=== PATIENT | male | born 1965 | race Caucasian/White ===

== ENCOUNTER 2023-08-31 16:25 | Emergency (ER) | payer OTHER, SELFPAY ==
--- NOTE | ~2023-08-31 | XR_ITS ---
XR humerus LT Ordering provider: Ligia Kong MD History: . fall, pain . Comparison: None. FINDINGS: BONES: No acute fracture or dislocation. JOINT SPACES: Normal. SOFT TISSUES: Normal. IMPRESSION: No acute osseous abnormality left humerus. Reviewed, dictated and finalized at location A.
--- NOTE | ~2023-08-31 | XR_ITS ---
XR shoulder LT min 2V Ordering provider: Ligia Kong MD History: . fall . Comparison: None. FINDINGS: BONES: No definite acute fracture or dislocation. Lucency is seen in the distal left clavicular which may be a nondisplaced fracture. Follow-up advised. JOINT SPACES: The acromioclavicular joint is normal. The glenohumeral joint is normal. Degenerative c hanges in the area of the supraspinatus tendon with calcification in the distal tendon which is highl y suggestive of calcific tendinitis. SOFT TISSUES: Normal. IMPRESSION: No definite acute osseous abnormality left shoulder. Lucency is seen in the distal left clavicle which may be a nondisplaced fracture. Follow-up advised. Calcific tendinitis of the left supraspinatus tendon. Reviewed, dictated and finalized at location A. IMPRESSION: No definite acute osseous abnormality left shoulder. Lucency is seen in the distal left clavicle which may be a nondisplaced fractu re. Follow-up advised. Calcific tendinitis of the left supraspinatus tendon.
[2023-08-31 16:28] VITALS: BP 175/73; PULSE 100; RESP 20; TEMP 36.5; O2SAT 94
--- NOTE | 2023-08-31 16:44 | ED.UPPEXIN ---
HPI - Extremity Injury (Upper) General Chief Complaint: Extremity Injury, Upper Stated Complaint: fell, L shoulder pain Time Seen by Provider: 08/31/23 16:32 History of Present Illness HPI narrative: Patient is a 58-year-old history of diabetes, hypertension here with a left shoulder injury. He states around 3:00 a.m. 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 He states he tried to stand up from sitting and had a soldering on how does wrap around 1 of his feet and this caused him to fall down onto his outstretched left arm with shoulder help rated he fell down onto his left side. He notes immediate pain to his left shoulder and some decrease motion of his shoulder due to she was cheating pain. He took no pain medication prior to coming to the hospital. He went home and his convinced him he needed to come into the emergency department for evaluation. He notes the pain radiates into his upper arm, denies any numbness or tingling over his arm. Denies any elbow, forearm, wrist, hand pain. He is ambidextrous and uses both hands for tasks. Related Data Allergies Allergy/AdvReac Type Severity Reaction Status Date / Time No Known Allergies Allergy Verified 08/31/23 16:35 Review of Systems Review of Systems: All systems reviewed & are unremarkable except as noted in HPI and below PMFSH Social History Social History Smoking status: Never smoker Alcohol intake: current Exam Narrative: GENERAL: Well-appearing, well-nourished, and in no acute distress. HEAD: Normocephalic, atraumatic. EYES: PERRLA and EOMI. ENT: Nares clear. Mucous membranes moist. NECK: Supple. CHEST: Clear to auscultation. No chest wall tenderness. No respiratory distress. HEART: Regular rate and rhythm. Normal peripheral pulses. ABDOMEN: Soft, nontender, nondistended. EXTREMITIES: Decreased range of motion of the left shoulder, nontender exam, no obvious deformity appreciated. No tenderness throughout the humerus, elbow, forearm, wrist, hand. Strong radial pulse present. Normal capillary refill throughout the left hand with normal sensation throughout the entire left arm. No tenderness present over bilateral clavicle. SKIN: Warm, dry, no rash. NEURO: No focal deficits. Alert and oriented x3. PSYCH: Normal mood and affect. Course Course Emergency Course: Chart review performed, patient here with the left upper extremity injury. Triage vitals show hypertension, otherwise within normal limits. No prior visits in our system. Patient seen evaluated, nontoxic appearing, here with a left shoulder injury which occurred at work. Will give patient pain medication, perform x-ray of shoulder and humerus. Suspicion for rotator cuff injury versus fracture versus musculoskeletal strain. Shoulder x-ray was largely negative. Lucencies seen in the distal left clavicle which could be a nondisplaced fracture. Humerus x-ray negative. Will place patient in sling and advise ROM at home. Will give orthopedic surgery follow up as needed. The results of pertinent diagnostic studies and exam findings were discussed. The patient?s provisional diagnosis and plan of care were discussed with the patient and present family. The patient and/or present family expressed understanding of the diagnosis and plan. The nurse was instructed to provide written instructions and appropriate follow-up information. The patient understands their need and responsibility to obtain additional follow-up as instructed. The risks of medications administered and prescribed were discussed with the patient and family present. Vital Signs Vital signs: Vital Signs Temperature 97.7 F 08/31/23 16:28 Pulse Rate 100 08/31/23 16:28 Respiratory Rate 20 08/31/23 16:28 Blood Pressure 175/73 H 08/31/23 16:28 Pulse Oximetry 94 08/31/23 16:28 Oxygen Delivery Room Air 08/31/23 16:28 Temperature 97.7 F 08/31/23 16:28 Pulse Rate 78 08/31/23 18:33 Respiratory Rate
[2023-08-31] MEDS: HYDROcodone/acetaminophen (*CRX) 5-325 MG TABLET 1 TAB PO (16:56)
[2023-08-31 18:33] VITALS: BP 162/73; PULSE 78; RESP 18; O2SAT 99
== END 2023-08-31 18:34 | disposition home or self-care (01) ==
PROVIDERS: Emergency Provider Student in an Organized Health Care Education/Training Program; PCP Family Medicine
DX: S40.012A Contusion of left shoulder, initial encounter (principal); R93.7 Abnormal findings on diagnostic imaging of other parts of musculoskeletal system; W18.09XA Striking against other object with subsequent fall, initial encounter
CPT/HCPCS: 73030; 73060; 99283; A4565; A9270

== ENCOUNTER 2023-10-09 10:08 | Outpatient (CLI) | payer OTHER, SELFPAY ==
--- NOTE | 2023-10-09 | ECG_ITS ---
Test Date: 2023-10-09 11:12:44 Measurements Intervals [place] Rate: 77 P: 54 [place]: 164 QRS: -58 QRSD: 158 T: -29 QT: 391 QTc: 444 Interpretive Statements SINUS RHYTHM WITH OCCASIONAL SUPRAVENTRICULAR PREMATURE COMPLEXES RIGHT BUNDLE BRANCH BLOCK LEFT ANTERIOR FASCICULAR BLOCK BASELINE ARTIFACT- II, III, AVF, V2, V4-V5 ABNORMAL ECG No previous ECG available for comparison Electronically Signed On 10-09-2023 11:45:07 CDT by Davian Rollins D.O.
[2023-10-09 11:04] LABS: Hematocrit 37.3 % (42.0-52.0); Hemoglobin 12.7 g/dL (14.0-18.0); Mean Platelet Volume 9.1 fl (7.4-10.4); Platelet Count Result 181 k/mm3 (150-375); Red Blood Count 4.24 M/mm3 (4.6-6.20); Red Cell Distribution Width 13.9 % (11.5-14.5); White Blood Count 7.8 K/mm3 (4.5-10.0)
[2023-10-09 11:14] LABS: Alanine Aminotransferase 17 U/L (6-50); Albumin Level 4.5 g/dL (3.5-5.1); Alkaline Phosphatase 90 U/L (38-126); Anion Gap 12 mmol/L (4-12); Aspartate Amino Transferase 19 U/L (17-59); Blood Urea Nitrogen 15 mg/dL (9-20); Calcium 9.8 mg/dL (8.4-10.2); Carbon Dioxide 29 mmol/L (22-30); Chloride 99 mmol/L (98-107); Estimated Glomerular Filt Rate > 60; Glucose 144 mg/dL (65-110); Potassium 4.6 mmol/L (3.4-5.0); Sodium 140 mmol/L (137-145)
[2023-10-09 12:47] LABS: Hemoglobin A1C 7.8 % (<5.7)
== END 2023-10-09 10:09 | disposition home or self-care (01) ==
PROVIDERS: PCP Family Medicine; Visit Provider Orthopaedic Surgery
DX: Z01.818 Encounter for other preprocedural examination (principal); I49.3 Ventricular premature depolarization; I45.2 Bifascicular block; R94.31 Abnormal electrocardiogram [ECG] [EKG]
CPT/HCPCS: 36415; 80053; 83036; 85027; 93005